=== PATIENT | male | born 1955 | race Caucasian/White ===

== ENCOUNTER 2019-12-07 16:00 | Inpatient (IN) ==
[2019-12-07] MEDS ORDERED: NS 0.9% 1000 ml BAG 1,000 ML IV ONE (16:20)
[2019-12-07] MEDS ORDERED: Ondansetron 4 mg VIAL 2 MG/ML 2 ml VIAL IV ONE (17:38)
[2019-12-07 17:48] LABS: ABS Lymphocytes 0.6 10^3/ul (1.0-4.8); ABS Monocytes 0.6 10^3/ul (0-0.8); ABS Neutrophils 8.4 10^3/ul (1.5-7.7); Eosinophil % 0.4 %; Hematocrit 45 % (42-52); Hemoglobin 15.5 g/dL (14.0-18.0); Lymphocyte % 5.8 %; Mean Corpuscular HGB Conc 35 g/dL (31-36); Mean Corpuscular Hemoglobin 31 pg (27-31); Mean Corpuscular Volume 90 fL (80-94); Mean Platelet Volume 8.4 fL (7.4-10.4); Platelet Count 165 10^3/uL (150-450); Red Blood Count 4.94 10^6 /uL (4.18-5.48); Red Cell Distribution Width 13 % (10-15); White Blood Count 9.6 10^3/uL (3.5-10.8)
[2019-12-07 18:06] LABS: BUN/Creatinine Ratio 15.1 (8-20)
[2019-12-07 18:07] LABS: Albumin 4.2 g/dL (3.2-5.2); Albumin/Globulin Ratio 1.8 (1-3); Calcium 8.5 mg/dL (8.6-10.3); EGFR African American 98.7 (>60); EGFR Non-African American 81.5 (>60); Globulin 2.4 g/dL (2-4); Total Bilirubin 0.8 mg/dL (0.2-1.0); Total Protein 6.6 g/dL (6.4-8.9)
[2019-12-07] MEDS ORDERED: Iohexol 350 (CONTRAST) 500 ML MDV IV ONE (18:15)
[2019-12-07] MEDS ORDERED: Lorazepam PYXIS KEY PRN (18:52)
[2019-12-07] MEDS ORDERED: LORazepam 2 mg VIAL 1 ml IV PUSH ONE (18:52)
[2019-12-07] MEDS ORDERED: Ondansetron 4 mg VIAL 2 MG/ML 2 ml VIAL IV PRN (21:34)
[2019-12-07] MEDS: NS 0.9% 1000 ml BAG 1,000 ML IV SCH (23:30)
[2019-12-08] MEDS: NS 0.9% 1000 ml BAG 1,000 ML IV SCH (10:20)
[2019-12-09 06:20] LABS: Calcium 8.2 mg/dL (8.6-10.3); Potassium 3.6 mmol/L (3.5-5.0)
[2019-12-09 06:26] LABS: BUN/Creatinine Ratio 13.7 (8-20); EGFR African American 96.3 (>60); EGFR Non-African American 79.6 (>60)
[2019-12-09] MEDS ORDERED: CALCIUM GLUCONATE 1GM/50ML NS 1 GM/50 ML BAG IV ONE (08:45)
[2019-12-09 16:23] VITALS: BP 136/73
== END 2019-12-09 16:40 | disposition home or self-care (01) | DRG 69 ==
LOC: ED 16:00 → MEDTELE 21:29
PROVIDERS: ADMIT Internal Medicine; ATTEND Internal Medicine

== ENCOUNTER 2021-02-06 21:39 | Observation (INO) ==
[2021-02-06] MEDS ORDERED: Lidocaine/Epineph/Tetraca GEL 3 ML GEL IN SYR TOPICAL ONE (22:34)
[2021-02-06] MEDS ORDERED: Ondansetron 4 mg VIAL 2 MG/ML 2 ml VIAL IV ONE (22:34)
[2021-02-06] MEDS ORDERED: Lactated Ringers 1000 ml BAG 1,000 ML IV ONE (22:34)
[2021-02-06 22:38] LABS: ABS Eosinophils 0.1 10^3/ul (0-0.6); ABS Lymphocytes 1.1 10^3/ul (1.0-4.8); ABS Monocytes 0.4 10^3/ul (0-0.8); ABS Neutrophils 4.1 10^3/ul (1.5-7.7); Eosinophil % 1.6 %; Hematocrit 44 % (42-52); Hemoglobin 15.8 g/dL (14.0-18.0); Lymphocyte % 19.4 %; Mean Corpuscular HGB Conc 36 g/dL (31-36); Mean Corpuscular Hemoglobin 32 pg (27-31); Mean Corpuscular Volume 91 fL (80-94); Mean Platelet Volume 8.8 fL (7.4-10.4); Platelet Count 168 10^3/uL (150-450); Red Cell Distribution Width 13 % (10-15); White Blood Count 5.7 10^3/uL (3.5-10.8)
[2021-02-06 22:56] LABS: Albumin 4.2 g/dL (3.2-5.2); Albumin/Globulin Ratio 1.8 (1-3); Calcium 8.6 mg/dL (8.6-10.3); Globulin 2.3 g/dL (2-4); Potassium 3.3 mmol/L (3.5-5.0); Total Bilirubin 0.5 mg/dL (0.2-1.0); Total Protein 6.5 g/dL (6.4-8.9)
[2021-02-06 22:57] LABS: Troponin I 0.01 ng/mL (<0.03)
[2021-02-06 23:11] LABS: Rapid COVID-19 Molecular Undetected (Undetected)
[2021-02-06] MEDS ORDERED: Tetan/Diph/Pertus SYR(Tdap) 0.5 ML SYR(BOOSTRIX) use SYR contains LATEX IM ONE (23:14)
[2021-02-07] MEDS ORDERED: Ondansetron 4 mg VIAL 2 MG/ML 2 ml VIAL IV PRN (00:36)
[2021-02-07 00:57] LABS: Magnesium 1.9 mg/dL (1.9-2.7)
[2021-02-07] MEDS: KCL 20 MEQ/100 ML IVPREMIX 20 MEQ/100 ML BAG IV SCH ×3 (01:33→10:23)
[2021-02-07 01:36] LABS: Urine Appearance Clear; Urine Bilirubin Negative (Negative); Urine Blood Negative (Negative); Urine Color Straw; Urine Glucose Negative (Negative); Urine Ketones Negative (Negative); Urine Nitrite Negative (Negative); Urine Protein Negative (Negative); Urine Urobilinogen Negative (Negative)
[2021-02-07 08:29] LABS: ABS Lymphocytes 0.9 10^3/ul (1.0-4.8); ABS Monocytes 0.5 10^3/ul (0-0.8); ABS Neutrophils 5.8 10^3/ul (1.5-7.7); Eosinophil % 0.2 %; Hematocrit 43 % (42-52); Hemoglobin 15.2 g/dL (14.0-18.0); Lymphocyte % 12.6 %; Mean Corpuscular HGB Conc 35 g/dL (31-36); Mean Corpuscular Hemoglobin 32 pg (27-31); Mean Corpuscular Volume 92 fL (80-94); Mean Platelet Volume 9.2 fL (7.4-10.4); Platelet Count 157 10^3/uL (150-450); Red Blood Count 4.69 10^6 /uL (4.18-5.48); Red Cell Distribution Width 13 % (10-15); White Blood Count 7.2 10^3/uL (3.5-10.8)
[2021-02-07 08:42] LABS: HDL Cholesterol 33.3 mg/dL
[2021-02-07] MEDS ORDERED: Metoclopramide 5 MG/ML VIAL (10 mg) IV ONE (11:38)
[2021-02-07 15:18] VITALS: BP 131/86
== END 2021-02-07 15:17 | disposition home or self-care (01) ==
LOC: EDHOLD 21:39 → ED 21:39 → EDHOLD 02-07 15:16
PROVIDERS: ADMIT Internal Medicine; ATTEND Internal Medicine